=== PATIENT | female | born 1955 | race African-American/Black ===

== ENCOUNTER 2018-12-27 14:17 | Inpatient (IN) | payer MEDICAID, OTHER ==
[~2018-12-27] VITALS: Ht 175.3 cm; Wt 63.5 kg
[~2018-12-27 14:17] MED LIST: ACET-3161; ALBUTEROL; BACTRIM; DILANTIN; INSULIN; PHENOBARBITAL; TRAMADOL
[2018-12-27 18:00] LABS: CHLORIDE 95 mEq/L (98-107); INR 1.4; PROTHROMBIN TIME 13.9 sec (9.1-11.1)
[2018-12-27] MEDS ORDERED: MORPHINE SULFATE 4 MG/ML CPJ (NOT FOR IM USE) IV ONE (18:15)
[2018-12-27 18:20] LABS: CREATINE KINASE 1610 IU/L (26-192)
[2018-12-27] MEDS ORDERED: SODIUM CHLORIDE 0.9% 1,000 ML IV ONE ×2 (18:30→20:00)
[2018-12-27 19:34] LABS: HEMATOCRIT. 37.9 % (36.0-48.0); HEMOGLOBIN. 12.3 g/dL (12.0-16.0); MEAN CORPUSCULAR VOLUME 89.1 fL (81.0-99.0); MEAN PLATELET VOLUME 9.6 fl (7.4-10.4); PLATELET 156 x1000/uL (130-400); RED BLOOD CELL COUNT 4.26 mill/uL (4.2-5.4); RED CELL DISTRIBUTION WIDTH 13.2 % (11.6-14.6)
[2018-12-27] MEDS ORDERED: ASPIRIN 325MG TABLET PO ONE (20:00)
[2018-12-27] MEDS ORDERED: FENTANYL CITRATE/PF 50MCG/ML 2ML VIAL IV ONE (20:45)
[2018-12-27 21:36] LABS: PLATELET ESTIMATE NORMAL
[2018-12-28 01:14] LABS: CLARITY URINE TURBID (CLEAR); COLOR URINE YELLOW (YELLOW); KETONES URINE NEGATIVE (NEGATIVE); LEUKOCYTE ESTERASE URINE 3+ (NEGATIVE); NITRITE URINE NEGATIVE (NEGATIVE); OCCULT BLOOD URINE 3+ (NEGATIVE); PH URINE 5.5 (4.5-8.0); PROTEIN URINE 2+ (NEGATIVE); SPECIFIC GRAVITY URINE 1.014 (1.005-1.030)
[2018-12-28] MEDS ORDERED: CEFTRIAXONE 1 G PREMIX 50 ML IV SCH (06:00)
[2018-12-28 06:11] LABS: HEMATOCRIT. 37.4 % (36.0-48.0); HEMOGLOBIN. 12.3 g/dL (12.0-16.0); MEAN CORPUSCULAR HEMOGLOBIN 29.1 pg (28.0-32.0); MEAN CORPUSCULAR VOLUME 88.4 fL (81.0-99.0); MEAN PLATELET VOLUME 9.3 fl (7.4-10.4); PLATELET 149 x1000/uL (130-400); RED BLOOD CELL COUNT 4.23 mill/uL (4.2-5.4); RED CELL DISTRIBUTION WIDTH 13.1 % (11.6-14.6)
[2018-12-28 06:14] LABS: CHLORIDE 101 mEq/L (98-107)
[2018-12-28 06:26] LABS: CREATINE KINASE MB FRACTION 1.1 ng/mL (0.5-3.6)
[2018-12-28 06:34] LABS: PLATELET ESTIMATE NORMAL
[2018-12-28 06:36] LABS: CREATINE KINASE 1049 IU/L (26-192)
[2018-12-28] MEDS: MORPHINE SULFATE 4 MG/ML CPJ (NOT FOR IM USE) IV PRN ×5 (06:45→23:35)
[2018-12-28 08:30] VITALS: BP 114/73
[2018-12-28] MEDS: SODIUM CHLORIDE 0.9% 1,000 ML IV SCH (11:13)
[2018-12-28 12:00] VITALS: BP 118/69
[2018-12-28 12:01] VITALS: BP 114/73
[2018-12-28] MEDS ORDERED: DEXTROSE 50% WATER 50ML SYRINGE IV PRN (13:30)
[2018-12-28] MEDS: ACETAMINOPHEN 325MG TABLET PO PRN ×2 (13:55→23:39)
[2018-12-28 14:40] LABS: CANNABINOID URINE SCREEN NEGATIVE (NEGATIVE)
[2018-12-28 14:41] LABS: *AMPHETAMINES SCREEN URINE NEGATIVE (NEGATIVE); *BARBITURATES SCREEN URINE NEGATIVE (NEGATIVE); *BENZODIAZEPINES SCREEN URINE NEGATIVE (NEGATIVE); *COCAINE SCREEN URINE PRESUMTIVE POSITIVE (NEGATIVE); METHADONE URINE SCREEN NEGATIVE (NEGATIVE); OPIATES URINE SCREEN PRESUMTIVE POSITIVE (NEGATIVE)
[2018-12-28 14:42] LABS: PHENCYCLIDINE URINE SCREEN NEGATIVE (NEGATIVE)
[2018-12-28 16:00] VITALS: BP 100/58
[2018-12-28] MEDS: CEFTRIAXONE 1 G PREMIX 50 ML IV SCH (16:54)
[2018-12-28] MEDS: BLOOD SUGAR DIAGNOSTIC STRIP TEST SCH ×2 (18:21→21:29)
[2018-12-28] MEDS: INSULIN LISPRO 100 UNITS/ML SUBCUT SCH ×2 (18:23→21:32)
[2018-12-28 20:00] VITALS: BP_SYST 117; BP_SYST 121; BP_DIAS 64; BP_DIAS 78
[2018-12-28] MEDS ORDERED: DIPHENHYDRAMINE 50MG/ML VIAL IV NR (21:00)
[2018-12-28] MEDS: LEVETIRACETAM 500MG TABLET PO SCH (21:25)
[2018-12-28] MEDS: ENOXAPARIN 40MG/0.4ML SYR SUBCUT SCH (23:39)
[2018-12-29] VITALS: BP 110/70
[2018-12-29] MEDS: SODIUM CHLORIDE 0.9% 1,000 ML IV SCH (01:45)
[2018-12-29] MEDS: MORPHINE SULFATE 4 MG/ML CPJ (NOT FOR IM USE) IV PRN ×6 (03:54→21:09)
[2018-12-29 04:00] VITALS: BP 104/62
[2018-12-29] MEDS: BLOOD SUGAR DIAGNOSTIC STRIP TEST SCH ×4 (05:54→21:00)
[2018-12-29 06:30] LABS: HEMATOCRIT. 35.5 % (36.0-48.0); HEMOGLOBIN. 11.6 g/dL (12.0-16.0); MEAN CORPUSCULAR VOLUME 88.7 fL (81.0-99.0); MEAN PLATELET VOLUME 9.6 fl (7.4-10.4); PLATELET 146 x1000/uL (130-400); RED CELL DISTRIBUTION WIDTH 12.9 % (11.6-14.6)
[2018-12-29 06:41] LABS: CHLORIDE 105 mEq/L (98-107)
[2018-12-29 07:02] LABS: CREATINE KINASE 487 IU/L (26-192)
[2018-12-29 08:00] VITALS: BP_SYST 102; BP_SYST 107; BP_DIAS 60; BP_DIAS 68
[2018-12-29] MEDS: LEVETIRACETAM 500MG TABLET PO SCH ×2 (08:21→21:05)
[2018-12-29] MEDS: INSULIN LISPRO 100 UNITS/ML SUBCUT SCH ×4 (08:28→21:00)
[2018-12-29] MEDS: ACETAMINOPHEN 325MG TABLET PO PRN (10:49)
[2018-12-29 12:00] VITALS: BP 107/61
[2018-12-29] MEDS: CEFTRIAXONE 1 G PREMIX 50 ML IV SCH (12:57)
[2018-12-29 16:00] VITALS: BP 120/66
[2018-12-29 20:00] VITALS: BP_SYST 100; BP_SYST 102; BP_DIAS 69; BP_DIAS 73
[2018-12-29] MEDS: ENOXAPARIN 40MG/0.4ML SYR SUBCUT SCH (21:05)
[2018-12-29] MEDS: DIPHENHYDRAMINE 50MG CAPSULE PO PRN (21:05)
[2018-12-30] VITALS: BP 115/73
[2018-12-30] MEDS: MORPHINE SULFATE 4 MG/ML CPJ (NOT FOR IM USE) IV PRN ×6 (00:32→20:32)
[2018-12-30 04:00] VITALS: BP 105/65
[2018-12-30 06:45] LABS: PLATELET ESTIMATE NORMAL
[2018-12-30] MEDS: INSULIN LISPRO 100 UNITS/ML SUBCUT SCH ×4 (07:16→20:21)
[2018-12-30] MEDS: BLOOD SUGAR DIAGNOSTIC STRIP TEST SCH ×4 (07:16→20:21)
[2018-12-30 08:00] VITALS: BP 98/57
[2018-12-30] MEDS: LEVETIRACETAM 500MG TABLET PO SCH ×2 (08:36→20:32)
[2018-12-30] MEDS: SODIUM CHLORIDE 0.9% 1,000 ML IV SCH ×2 (08:54→16:53)
[2018-12-30] MEDS ORDERED: AMIKACIN 500MG in SODIUM CHLORIDE 0.9% 100ML IV SCH (09:00)
[2018-12-30 12:00] VITALS: BP 121/69
[2018-12-30] MEDS: CEFTRIAXONE 1 G PREMIX 50 ML IV SCH (14:56)
[2018-12-30 16:00] VITALS: BP 114/67
[2018-12-30 20:00] VITALS: BP 119/67
[2018-12-30] MEDS: ENOXAPARIN 40MG/0.4ML SYR SUBCUT SCH (20:32)
[2018-12-30] MEDS: DIPHENHYDRAMINE 50MG CAPSULE PO PRN (20:32)
[2018-12-31 00:01] VITALS: BP 100/66
[2018-12-31] MEDS: MORPHINE SULFATE 4 MG/ML CPJ (NOT FOR IM USE) IV PRN ×5 (00:23→20:59)
[2018-12-31] MEDS: SODIUM CHLORIDE 0.9% 1,000 ML IV SCH ×3 (01:45→17:45)
[2018-12-31 04:00] VITALS: BP 115/71
[2018-12-31] MEDS: BLOOD SUGAR DIAGNOSTIC STRIP TEST SCH ×4 (06:02→21:38)
[2018-12-31 07:32] LABS: HEMATOCRIT. 32.1 % (36.0-48.0); HEMOGLOBIN. 10.5 g/dL (12.0-16.0); MEAN CORPUSCULAR VOLUME 88.6 fL (81.0-99.0); MEAN PLATELET VOLUME 9.5 fl (7.4-10.4); PLATELET 196 x1000/uL (130-400); RED BLOOD CELL COUNT 3.63 mill/uL (4.2-5.4); RED CELL DISTRIBUTION WIDTH 13.4 % (11.6-14.6)
[2018-12-31] MEDS: INSULIN LISPRO 100 UNITS/ML SUBCUT SCH ×4 (07:37→21:00)
[2018-12-31 07:59] LABS: CHLORIDE 105 mEq/L (98-107)
[2018-12-31 08:00] VITALS: BP 110/68
[2018-12-31] MEDS: LEVETIRACETAM 500MG TABLET PO SCH ×2 (08:34→20:58)
[2018-12-31 12:00] VITALS: BP 129/74
[2018-12-31 12:39] LABS: ATYPICAL LYMPHOCYTES 2
[2018-12-31 12:42] LABS: PLATELET ESTIMATE NORMAL
[2018-12-31] MEDS: CEFTRIAXONE 1 G PREMIX 50 ML IV SCH (14:13)
[2018-12-31 16:36] VITALS: BP 116/69
[2018-12-31 20:00] VITALS: BP_SYST 114; BP_SYST 116; BP_DIAS 71
[2018-12-31] MEDS: ENOXAPARIN 40MG/0.4ML SYR SUBCUT SCH (21:00)
[2019-01-01] VITALS: BP 122/68
[2019-01-01] MEDS: MORPHINE SULFATE 4 MG/ML CPJ (NOT FOR IM USE) IV PRN ×3 (01:01→08:55)
[2019-01-01] MEDS: SODIUM CHLORIDE 0.9% 1,000 ML IV SCH ×2 (01:45→09:13)
[2019-01-01 04:00] VITALS: BP 112/66
[2019-01-01 04:14] LABS: HIV SCREEN 4G Non Reactive (Non Reactive)
[2019-01-01] MEDS: BLOOD SUGAR DIAGNOSTIC STRIP TEST SCH (06:49)
[2019-01-01] MEDS: INSULIN LISPRO 100 UNITS/ML SUBCUT SCH (07:12)
[2019-01-01 08:00] VITALS: BP 113/65
[2019-01-01] MEDS: LEVETIRACETAM 500MG TABLET PO SCH (08:59)
[2019-01-01 09:35] VITALS: BP 113/65
== END 2019-01-01 10:40 | disposition home or self-care (01) | DRG 816 ==
LOC: ER 14:17 → 7WST 19:53 → EDBEDREQ 20:00 → EDBEDREQTM 20:00 → ENRESERV 12-28 07:09
PROVIDERS: ADMIT Internal Medicine; ATTEND Internal Medicine
PROC: 4A00X4Z Measurement of Central Nervous Electrical Activity, External Approach (ICD-10-PCS; principal; 2018-12-29)
DX: T40.5X1A Poisoning by cocaine, accidental (unintentional), initial encounter (principal); A41.9 Sepsis, unspecified organism; E43 Unspecified severe protein-calorie malnutrition; N17.9 Acute kidney failure, unspecified; E11.43 Type 2 diabetes mellitus with diabetic autonomic (poly)neuropathy; E87.1 Hypo-osmolality and hyponatremia; K86.1 Other chronic pancreatitis; I07.1 Rheumatic tricuspid insufficiency; E86.0 Dehydration; N39.0 Urinary tract infection, site not specified; M62.82 Rhabdomyolysis; I11.9 Hypertensive heart disease without heart failure; F14.10 Cocaine abuse, uncomplicated; F17.200 Nicotine dependence, unspecified, uncomplicated; G40.909 Epilepsy, unspecified, not intractable, without status epilepticus; I27.20 Pulmonary hypertension, unspecified; J45.909 Unspecified asthma, uncomplicated; Z86.73 Personal history of transient ischemic attack (TIA), and cerebral infarction without residual deficits; Z90.49 Acquired absence of other specified parts of digestive tract; Z91.19 Patient's noncompliance with other medical treatment and regimen; Z96.642 Presence of left artificial hip joint; Z88.1 Allergy status to other antibiotic agents; R26.9 Unspecified abnormalities of gait and mobility; Z68.20 Body mass index [BMI] 20.0-20.9, adult; Z79.84 Long term (current) use of oral hypoglycemic drugs; Y92.9 Unspecified place or not applicable
CPT/HCPCS: 36415; 71045; 73521; 76700; 80048; 80305; 82550; 82553; 82962; 84484; 87077; 87186; 87389; 93005; 93306; 93880; 96374; 97162; 97166; 97530; 99285; A6261; J0278; J0696; J1650; J1815; J2270; J3010; J7030; J7050; Q0163

== ENCOUNTER 2020-01-31 20:11 | Emergency (ER) | payer MEDICARE, MEDICAID ==
[~2020-01-31] VITALS: Ht 170.2 cm; Wt 69.0 kg
[2020-01-31] MEDS ORDERED: HYDROCODONE/ACETAMINOPHEN 5/325MG TABLET PO ONE (21:45)
[2020-01-31] MEDS ORDERED: ONDANSETRON 4MG ODT PO ONE (21:45)
[2020-02-01] MEDS ORDERED: MORPHINE SULFATE 4 MG/ML CPJ (NOT FOR IM USE) IV ONE (00:15)
[2020-02-01 00:41] VITALS: BP 130/70
== END 2020-02-01 00:47 | disposition home or self-care (01) ==
LOC: ER 20:11
DX: S42.291A Other displaced fracture of upper end of right humerus, initial encounter for closed fracture (principal); W18.39XA Other fall on same level, initial encounter; Y93.89 Activity, other specified; Y92.89 Other specified places as the place of occurrence of the external cause; Y99.8 Other external cause status; J45.909 Unspecified asthma, uncomplicated; E11.9 Type 2 diabetes mellitus without complications; Z90.49 Acquired absence of other specified parts of digestive tract; Z79.899 Other long term (current) drug therapy; Z88.0 Allergy status to penicillin
CPT/HCPCS: 71045; 73030; 96374; 99284; J2270; Q0162

== ENCOUNTER 2020-02-18 18:12 | Inpatient (IN) | payer MEDICARE, MEDICAID ==
[~2020-02-18] VITALS: Ht 342.9 cm; Wt 60.8 kg
[2020-02-18] MEDS ORDERED: SODIUM CHLORIDE 0.9% 1,000 ML IV ONE (18:54)
[2020-02-18] MEDS ORDERED: ONDANSETRON HCL 4MG/2ML INJ IV STA (19:04)
[2020-02-18] MEDS ORDERED: MORPHINE SULFATE 4 MG/ML CPJ (NOT FOR IM USE) IV STA (19:04)
[2020-02-18 19:20] LABS: BASOPHILS % 0.6 % (0.0-2.0); EOSINOPHILS % 1.1 % (0.0-5.0); HEMATOCRIT. 35.5 % (36.0-48.0); HEMOGLOBIN. 11.7 g/dL (12.0-16.0); LYMPHOCYTES % 39.2 % (20.0-50.0); MEAN CORPUSCULAR HEMOGLOBIN 30.7 pg (28.0-32.0); MEAN PLATELET VOLUME 9.3 fl (7.4-10.4); MONOCYTES % 11.9 % (2.0-8.0); NEUTROPHILS % 47.2 % (40.0-76.0); PLATELET 257 x1000/uL (130-400); RED BLOOD CELL COUNT 3.82 mill/uL (4.2-5.4); RED CELL DISTRIBUTION WIDTH 13.7 % (11.6-14.6)
[2020-02-18 19:27] LABS: CHLORIDE 108 mEq/L (98-107)
[2020-02-18 19:40] LABS: INR 1.1; PROTHROMBIN TIME 11.4 sec (9.6-11.0)
[2020-02-18] MEDS ORDERED: KETOROLAC 15MG/ML VIAL IV ONE (20:00)
[2020-02-18] MEDS ORDERED: FENTANYL CITRATE/PF 50MCG/ML 2ML VIAL IV ONE (21:30)
[2020-02-18] MEDS ORDERED: LORAZEPAM 2MG/ML CPJ IV PRN (22:30)
[2020-02-18] MEDS ORDERED: HYDROCODONE/ACETAMINOPHEN 10/325MG TABLET PO PRN (22:30)
[2020-02-18] MEDS ORDERED: HYDRALAZINE 20MG/ML VIAL IV PRN (22:30)
[2020-02-18] MEDS ORDERED: MAGNESIUM/ALUMINUM HYDROXIDE/SIMETHICONE 30ML UDC PO PRN (22:30)
[2020-02-18] MEDS ORDERED: IPRATROPIUM/ALBUTEROL 0.5-3(2.5)MG/3ML NEB NEB PRN (22:30)
[2020-02-18] MEDS ORDERED: DOCUSATE SODIUM 100MG CAPSULE PO PRN (22:30)
[2020-02-18] MEDS ORDERED: DIPHENHYDRAMINE 50MG/ML VIAL IV PRN (22:30)
[2020-02-18] MEDS ORDERED: ONDANSETRON HCL 4MG/2ML INJ IV PRN (22:30)
[2020-02-18] MEDS ORDERED: ACETAMINOPHEN 325MG TABLET PO PRN (22:30)
[2020-02-18] MEDS ORDERED: CLONIDINE 0.1MG TABLET PO PRN (22:30)
[2020-02-18] MEDS ORDERED: GUAIFENESIN 200MG/10ML SUGAR FREE UDC PO PRN (22:30)
[2020-02-18] MEDS ORDERED: DEXTROSE 50% WATER 50ML SYRINGE IV PRN (22:30)
[2020-02-19] MEDS: MORPHINE SULFATE 2 MG/ML CPJ (NOT FOR IM USE) IV PRN ×5 (01:01→20:01)
[2020-02-19 06:14] LABS: BASOPHILS % 0.7 % (0.0-2.0); EOSINOPHILS % 1.5 % (0.0-5.0); HEMATOCRIT. 33.8 % (36.0-48.0); HEMOGLOBIN. 11.4 g/dL (12.0-16.0); LYMPHOCYTES % 45.8 % (20.0-50.0); MEAN CORPUSCULAR HEMOGLOBIN 31.6 pg (28.0-32.0); MEAN PLATELET VOLUME 9.1 fl (7.4-10.4); MONOCYTES % 11.6 % (2.0-8.0); NEUTROPHILS % 40.4 % (40.0-76.0); PLATELET 209 x1000/uL (130-400); RED BLOOD CELL COUNT 3.59 mill/uL (4.2-5.4); RED CELL DISTRIBUTION WIDTH 13.8 % (11.6-14.6)
[2020-02-19 06:25] LABS: CHLORIDE 109 mEq/L (98-107)
[2020-02-19 06:34] LABS: LDL CHOLESTEROL 38 mg/dL (5-100)
[2020-02-19 06:36] LABS: CREATINE KINASE 175 IU/L (26-192); CREATINE KINASE MB FRACTION 1.2 ng/mL (0.5-3.6); T4 FREE 0.67 ng/dL (0.76-1.46)
[2020-02-19 06:37] LABS: HDL CHOLESTEROL 49 mg/dL (40-59)
[2020-02-19 09:00] VITALS: BP 108/78
[2020-02-19] MEDS ORDERED: NA PHOS,M-B/NA PHOS,DI-BA ENEMA 118ML PR PRN (09:00)
[2020-02-19] MEDS: INSULIN LISPRO 100 UNITS/ML SUBCUT SCH ×4 (09:30→21:00)
[2020-02-19 09:35] VITALS: BP 108/78
[2020-02-19] MEDS: BLOOD SUGAR DIAGNOSTIC STRIP TEST SCH ×4 (09:49→21:00)
[2020-02-19] MEDS: ENOXAPARIN 40MG/0.4ML SYR SUBCUT SCH (09:49)
[2020-02-19 12:00] VITALS: BP 115/66
[2020-02-19 12:35] LABS: T4 FREE 0.66 ng/dL (0.76-1.46)
[2020-02-19] MEDS: SODIUM CHLORIDE 0.9% INJ 3ML FLUSH IVF SCH ×2 (13:17→22:00)
[2020-02-19 16:00] VITALS: BP 125/72
[2020-02-19 16:15] LABS: CREATINE KINASE 180 IU/L (26-192)
[2020-02-19 16:16] LABS: CREATINE KINASE MB FRACTION 1.6 ng/mL (0.5-3.6)
[2020-02-19 17:14] LABS: CLARITY URINE CLOUDY (CLEAR); COLOR URINE YELLOW (YELLOW); KETONES URINE NEGATIVE (NEGATIVE); LEUKOCYTE ESTERASE URINE 3+ (NEGATIVE); NITRITE URINE POSITIVE (NEGATIVE); OCCULT BLOOD URINE 1+ (NEGATIVE); PH URINE 6.5 (4.5-8.0); PROTEIN URINE TRACE (NEGATIVE); SPECIFIC GRAVITY URINE 1.019 (1.005-1.030); UROBILINOGEN URINE 0.2 E.U./dL (0.2-1.0)
[2020-02-19 17:25] LABS: *AMPHETAMINES SCREEN URINE NEGATIVE (NEGATIVE); *COCAINE SCREEN URINE NEGATIVE (NEGATIVE); METHADONE URINE SCREEN NEGATIVE (NEGATIVE)
[2020-02-19 17:26] LABS: *BARBITURATES SCREEN URINE NEGATIVE (NEGATIVE); *BENZODIAZEPINES SCREEN URINE NEGATIVE (NEGATIVE); CANNABINOID URINE SCREEN NEGATIVE (NEGATIVE); OPIATES URINE SCREEN PRESUMTIVE POSITIVE (NEGATIVE); PHENCYCLIDINE URINE SCREEN NEGATIVE (NEGATIVE)
[2020-02-19 20:00] VITALS: BP 135/60
[2020-02-19] MEDS ORDERED: PHENYTOIN SODIUM EXTENDED 100MG CAPSULE PO SCH (21:00)
[2020-02-20] VITALS: BP 139/61
[2020-02-20] MEDS: MORPHINE SULFATE 2 MG/ML CPJ (NOT FOR IM USE) IV PRN ×6 (00:05→21:10)
[2020-02-20 04:00] VITALS: BP 125/71
[2020-02-20] MEDS: SODIUM CHLORIDE 0.9% INJ 3ML FLUSH IVF SCH ×3 (06:00→21:10)
[2020-02-20] MEDS: BLOOD SUGAR DIAGNOSTIC STRIP TEST SCH ×4 (07:20→20:17)
[2020-02-20] MEDS: INSULIN LISPRO 100 UNITS/ML SUBCUT SCH ×4 (07:50→20:17)
[2020-02-20] MEDS: ENOXAPARIN 40MG/0.4ML SYR SUBCUT SCH (09:13)
[2020-02-20 09:54] VITALS: BP 145/73
[2020-02-20 17:04] VITALS: BP 116/71
[2020-02-20 20:00] VITALS: BP 134/74
[2020-02-21] VITALS: BP 129/68
[2020-02-21] MEDS: MORPHINE SULFATE 2 MG/ML CPJ (NOT FOR IM USE) IV PRN ×6 (01:11→21:03)
[2020-02-21 04:00] VITALS: BP 123/69
[2020-02-21] MEDS: SODIUM CHLORIDE 0.9% INJ 3ML FLUSH IVF SCH ×3 (06:33→21:25)
[2020-02-21] MEDS: BLOOD SUGAR DIAGNOSTIC STRIP TEST SCH ×4 (06:33→21:22)
[2020-02-21 08:00] VITALS: BP 119/66
[2020-02-21] MEDS: ENOXAPARIN 40MG/0.4ML SYR SUBCUT SCH (08:16)
[2020-02-21] MEDS: INSULIN LISPRO 100 UNITS/ML SUBCUT SCH ×4 (08:17→21:00)
[2020-02-21] MEDS: NITROFURANTOIN 100MG M/M CAPSULE PO SCH ×2 (09:22→20:54)
[2020-02-21 12:00] VITALS: BP 127/67
[2020-02-21 16:00] VITALS: BP 129/64
[2020-02-21 20:00] VITALS: BP 121/63
[2020-02-22] VITALS: BP 133/59
[2020-02-22] MEDS: MORPHINE SULFATE 2 MG/ML CPJ (NOT FOR IM USE) IV PRN ×4 (01:31→13:22)
[2020-02-22 04:00] VITALS: BP 126/61
[2020-02-22] MEDS: SODIUM CHLORIDE 0.9% INJ 3ML FLUSH IVF SCH ×2 (05:03→13:23)
[2020-02-22] MEDS: BLOOD SUGAR DIAGNOSTIC STRIP TEST SCH ×2 (05:03→12:40)
[2020-02-22] MEDS: INSULIN LISPRO 100 UNITS/ML SUBCUT SCH ×2 (05:16→12:50)
[2020-02-22 08:00] VITALS: BP 116/68
[2020-02-22] MEDS: NITROFURANTOIN 100MG M/M CAPSULE PO SCH (09:09)
[2020-02-22] MEDS: ENOXAPARIN 40MG/0.4ML SYR SUBCUT SCH (09:09)
[2020-02-22 12:00] VITALS: BP 139/79
[2020-02-22 12:14] VITALS: BP 116/68
[2020-02-22] MEDS ORDERED: NITR-87 MT (12:24)
[2020-02-22] MEDS ORDERED: HYDR-3280 MT (12:25)
[2020-02-22 13:22] VITALS: BP 116/68
[2020-02-22] MEDS ORDERED: PHENYTOIN SODIUM EXTENDED 100MG CAPSULE PO SCH (22:00)
== END 2020-02-22 14:15 | disposition home or self-care (01) | DRG 73 ==
LOC: ER 18:12 → EDBEDREQ 21:24 → EDBEDREQTM 21:24 → 6WST 21:47 → ENRESERV 02-19 08:18
PROVIDERS: ADMIT Internal Medicine; ATTEND Internal Medicine
DX: G90.8 Other disorders of autonomic nervous system (principal); G93.41 Metabolic encephalopathy; N39.0 Urinary tract infection, site not specified; M25.511 Pain in right shoulder; D64.9 Anemia, unspecified; J45.909 Unspecified asthma, uncomplicated; E11.9 Type 2 diabetes mellitus without complications; G89.4 Chronic pain syndrome; G40.909 Epilepsy, unspecified, not intractable, without status epilepticus; I10 Essential (primary) hypertension; Z87.891 Personal history of nicotine dependence; Z88.1 Allergy status to other antibiotic agents
CPT/HCPCS: 36415; 71045; 73030; 80053; 80061; 80185; 80305; 81003; 82550; 82553; 82962; 83036; 83880; 84439; 84443; 84484; 85025; 85379; 87077; 87186; 93005; 93306; 93970; 97116; 97162; 97166; 99285; J1650; J1815; J1885; J2060; J2270; J2405; J3010; J7030